=== PATIENT | female | born 1955 ===

== ENCOUNTER 2022-08-28 05:16 | Day surgery (SDC) | payer OTHER ==
[~2022-08-28 05:16] MED LIST: CENTRUM SILVER1 EAC2 PO; COZAAR100 MG PO; CRESTOR20 MG PO; CYMBALTA60 MG PO; GABAPENTIN300 M2 PO; HYDROCHLOROTHIA25 MG PO; MELATONIN5 M3 PO; NORVASC5 MG PO; OMEGA-31000 MG PO; PRILOSEC OTC20 MG PO; SYNJARDY XR 251 EACH PO; SYNTHROID75 MCG PO; VITAMIN C100 MG PO; ZYRTEC10 M3 PO
[2022-08-28] MEDS ORDERED: CEPHALEXIN750 MG PO (11:54)
[2022-08-28] MEDS ORDERED: ULTRACET PO (11:54)
== END 2022-08-28 14:35 | disposition home or self-care (01) ==
LOC: CIR.AMB 05:16
PROVIDERS: ATTEND Obstetrics & Gynecology Gynecology
DX: N32.81 Overactive bladder (principal); R35.0 Frequency of micturition; N39.41 Urge incontinence; I10 Essential (primary) hypertension; E78.5 Hyperlipidemia, unspecified; J45.909 Unspecified asthma, uncomplicated; Z86.16 Personal history of COVID-19; G47.33 Obstructive sleep apnea (adult) (pediatric); Z99.89 Dependence on other enabling machines and devices; Z20.822 Contact with and (suspected) exposure to COVID-19
CPT/HCPCS: 64581; 95971; C1778

== ENCOUNTER 2022-09-04 05:13 | Day surgery (SDC) | payer OTHER ==
[~2022-09-04 05:13] MED LIST changes: +CEPHALEXIN750 MG PO; +ULTRACET PO
== END 2022-09-04 10:20 | disposition home or self-care (01) ==
LOC: CIR.AMB 05:13
PROVIDERS: ATTEND Obstetrics & Gynecology Gynecology
DX: N32.81 Overactive bladder (principal); N39.41 Urge incontinence; Z20.822 Contact with and (suspected) exposure to COVID-19; I10 Essential (primary) hypertension; E11.9 Type 2 diabetes mellitus without complications; E03.9 Hypothyroidism, unspecified
CPT/HCPCS: 64590; 95972; L8679